=== PATIENT | female | born 1960 | race Caucasian/White ===

== ENCOUNTER 2017-06-22 10:55 | Emergency (ER) | payer OTHER ==
[~2017-06-22] VITALS: Ht 157.5 cm; Wt 79.4 kg
[~2017-06-22 10:55] MED LIST: BENA20TA PO; PANT40EC PO
[2017-06-22 11:06] VITALS: BP 190/99
--- NOTE | 2017-06-22 11:36 | NUR ---
56f bib with c/o syncopal episode today today while walking. Pt sts she felt "palpations" during the night and intermittent dizziness throught today. Pt reports of 8/10 "sharp" constant right arm and shoulder pain. Abrasion noted to chin. Pt is aox4, answer questions appriopriately. RR are even and unlabored. Skin warm/pink/dry. No acute distress at this time. er md fower by bedside examining pt. Vss. Pt is NSR on CM. All needs met at this time. Will continue to monitor.
[2017-06-22 11:40] LABS: APPEARANCE,URINE CLEAR (CLEAR); BILIRUBIN,URINE NEGATIVE (NEGATIVE); BLOOD, URINE NEGATIVE (NEGATIVE); COLOR,URINE YELLOW (YELLOW); LEUKOCYTE ESTERASE ,URINE TRACE (NEGATIVE); NITRITE, URINE NEGATIVE (NEGATIVE); UGLUCOSE NEGATIVE (NEGATIVE)
[2017-06-22 11:42] LABS: HEMATOCRIT 39.9 % (36-48); HEMOGLOBIN 13.5 g/dL (12.0-16.0); MEAN CORPUSCULAR HEMOGLOBIN 29 pg (27-31); MEAN CORPUSCULAR HGB CONC 34 g/dL (33-37); MEAN CORPUSCULAR VOLUME 86 fL (80-94); PLATELET COUNT (AUTO) 167 K/uL (140-450); RED BLOOD CELL COUNT(AUTO) 4.66 MIL/uL (4.20-5.40); RED CELL DISTRIBUTION WIDTH 12.1 % (11.6-13.7); WHITE BLOOD COUNT (AUTO) 7.6 K/uL (4.8-10.8)
--- NOTE | 2017-06-22 11:44 | NUR ---
xray by bedside
[2017-06-22 11:45] LABS: RBC,URINE 0-5 (RARE) /HPF (0-5); WBC,URINE 0-5 (RARE) /HPF (0-5)
[2017-06-22 11:48] LABS: ANION GAP 8.6 (8-16); CARBON DIOXIDE 29.7 mmol/L (21-32); CREATININE 0.7 mg/dL (0.6-1.3); LYMPHOCYTES % (MANUAL) 28 % (20-46); MONOCYTES % (MANUAL) 7 % (5-12); POTASSIUM 3.3 mmol/L (3.5-5.1)
[2017-06-22 11:52] LABS: PROTHROMBIN TIME 10.5 secs (10.8-13.4)
[2017-06-22 11:54] LABS: ALBUMIN 3.8 g/dL (3.4-5.0); TOTAL BILIRUBIN 0.4 mg/dL (0.0-1.0)
--- NOTE | 2017-06-22 12:33 | NUR ---
Dr. Roberts refused to admit the patient. Will wait for pending CT results per Dr. Lynne.
--- NOTE | 2017-06-22 13:33 | NUR ---
Pt resting with eyes closed in gurney laying supine. RR are even and unlabored. VSS. Will continue to monitor.
[2017-06-22] MEDS ORDERED: ONDANSETRON 4 MG/2 ML VIAL IVP ONE (13:50)
[2017-06-22] MEDS ORDERED: MORPHINE SULFATE 2 MG/ML SYR IVP ONE (13:50)
--- NOTE | 2017-06-22 14:35 | NUR ---
Patient to be transferred to [facility]. Is being transferred due to higher level of care. Receiving facility has accepting physician and available space. ER physician has signed transfer form. Patient or responsible green party has agreed to transfer and signed form. Patient belongings inventoried and will be sent with patient. Copy of nursing notes, lab reports, EKG, Physicians Orders and X-rays to be sent with patient. Report called to Melchor Maya RN at receiving facility. [facility] has been called for transfer. ETA is 30mins.
[2017-06-22 15:11] VITALS: BP 163/87
--- NOTE | 2017-06-22 15:11 | NUR ---
[facility] acl by bedside. pt stable for transfer. pt aox4. gcs=15. rr are even and unlabored. pt left er without incident.
[2017-06-22 15:19] LABS: D-DIMER < 100 ng/ml (0-400)
== END 2017-06-22 15:11 | disposition short-term general hospital (02) ==
LOC: MED 10:55
DX: R55 Syncope and collapse (principal); G45.9 Transient cerebral ischemic attack, unspecified; E11.9 Type 2 diabetes mellitus without complications; I10 Essential (primary) hypertension; Z79.899 Other long term (current) drug therapy
CPT/HCPCS: 36415; 70450; 71045; 72125; 73030; 73120; 80053; 81001; 82948; 83735; 84484; 85025; 85379; 85610; 85730; 93005; 96374; 96375; 99285; J2270; J2405

== ENCOUNTER 2018-09-18 18:44 | Emergency (ER) | payer OTHER ==
[~2018-09-18] VITALS: Ht 152.4 cm; Wt 79.9 kg
[2018-09-18 18:57] VITALS: BP 140/78
[2018-09-18] MEDS ORDERED: NACL 0.9% 1,000 ML IV SCH (19:09)
[2018-09-18] MEDS ORDERED: ONDANSETRON 4 MG/2 ML VIAL IVP ONE (19:10)
[2018-09-18] MEDS ORDERED: KETOROLAC 30 MG/ML VIAL IVP ONE (19:10)
--- NOTE | 2018-09-18 19:12 | NUR ---
PATIENT PRESENTS TO ED WITH C/O ABD PAIN X 3 +N/V/D . SKIN IS PINK/WARM/DRY; AAOX4 WITH EVEN AND STEADY GAIT; LUNGS CLEAR BL; HR EVEN AND REGULAR; PT DENIES ANY FEVER, CP, SOB, OR COUGH AT THIS TIME; PATIENT STATES PAIN OF 9/10 AT THIS TIME; VSS; PATIENT POSITIONED FOR COMFORT; HOB ELEVATED; BEDRAILS UP X2; BED DOWN. ER MD MADE AWARE OF PT STATUS.
[2018-09-18 19:29] LABS: BASOPHILS % (AUTO) 0.4 % (0.0-2.0); EOSINOPHILS # (AUTO) 0.1 K/uL (0-0.4); HEMATOCRIT 42.8 % (36-48); HEMOGLOBIN 14.2 g/dL (12.0-16.0); LYMPHOCYTES % (AUTO) 8.6 % (20.5-51.1); MEAN CORPUSCULAR HEMOGLOBIN 29 pg (27-31); MEAN CORPUSCULAR HGB CONC 33 g/dL (33-37); MEAN CORPUSCULAR VOLUME 87.3 fL (80-94); MONOCYTES # (AUTO) 0.7 K/uL (0.8-1.0); NEUTROPHILS # (AUTO) 9.4 K/uL (1.8-7.7); PLATELET COUNT (AUTO) 179 K/uL (140-450); RED CELL DISTRIBUTION WIDTH 13.5 % (11.6-13.7); WHITE BLOOD COUNT (AUTO) 11.2 K/uL (4.8-10.8)
[2018-09-18 19:38] LABS: ANION GAP 12.1 (8-16); CARBON DIOXIDE 27.4 mmol/L (21-32); CREATININE 0.8 mg/dL (0.6-1.3); POTASSIUM 3.5 mmol/L (3.5-5.1)
[2018-09-18 19:44] LABS: ALBUMIN 3.8 g/dL (3.4-5.0); TOTAL BILIRUBIN 0.7 mg/dL (0.0-1.0)
--- NOTE | 2018-09-18 19:58 | NUR ---
DR. BLEDSOE BEDSIDE EVALUATING PT
--- NOTE | 2018-09-18 20:10 | NUR ---
EKG PERFORMED AT BEDSIDE
--- NOTE | 2018-09-18 20:32 | NUR ---
IV removed, catheter intact and site benign. Applied folded 4x4 gauze and tape to stop bleeding.
[2018-09-18 20:33] VITALS: BP 132/62
--- NOTE | 2018-09-18 20:33 | NUR ---
Patient discharged with v/s stable. Written and verbal after care instructions given and explained. Patient verbalized understanding. Ambulatory with steady gait. All questions addressed prior to discharge. Advised to follow up with PMD.
== END 2018-09-18 20:33 | disposition home or self-care (01) ==
LOC: MED 18:44
DX: R10.13 Epigastric pain (principal); R11.2 Nausea with vomiting, unspecified; R07.89 Other chest pain; R19.7 Diarrhea, unspecified; E11.9 Type 2 diabetes mellitus without complications; I10 Essential (primary) hypertension; Z98.890 Other specified postprocedural states; Z79.899 Other long term (current) drug therapy
CPT/HCPCS: 36415; 80053; 83690; 85025; 93005; 96361; 96374; 96375; 99284; J1885; J2405; J7030

== ENCOUNTER 2019-06-20 09:45 | Emergency (ER) | payer OTHER ==
[~2019-06-20] VITALS: Ht 152.4 cm; Wt 79.8 kg
[2019-06-20 09:50] VITALS: BP 119/69
--- NOTE | 2019-06-20 09:55 | NUR ---
PT TO ER BED 6
--- NOTE | 2019-06-20 10:00 | NUR ---
58 y/o female c/o generalized body aches, headahce, fever/chills, and nausea since 0100 today. denies vomiting/diarrhea. states 10/30 aching. took 800 mg ibuprofen at 0100 with pain relief. denies cough. rr even and unlabored. denies chest pain. sitting upright in bed, positioned for comfort. daughter at bedside. vss. medhx: dm, htn allergies: nka
--- NOTE | 2019-06-20 10:19 | NUR ---
Dr Benton at bedside examining pt
[2019-06-20] MEDS ORDERED: KETOROLAC 30 MG/ML VIAL IVP ONE (10:25)
[2019-06-20] MEDS ORDERED: NACL 0.9% 1,000 ML IV ONE (10:25)
--- NOTE | 2019-06-20 10:43 | NUR ---
20 G IV PLACED TO LT AC, LABS DRAWN AT THIS TIME.
[2019-06-20 10:45] LABS: BASOPHILS % (AUTO) 0.4 % (0.0-2.0); EOSINOPHILS # (AUTO) 0.1 K/uL (0-0.4); EOSINOPHILS % (AUTO) 0.5 % (0.0-4.0); HEMATOCRIT 41.7 % (36-48); HEMOGLOBIN 14.2 g/dL (12.0-16.0); LYMPHOCYTES % (AUTO) 15.2 % (20.5-51.1); MEAN CORPUSCULAR HEMOGLOBIN 29 pg (27-31); MEAN CORPUSCULAR HGB CONC 34 g/dL (33-37); MEAN CORPUSCULAR VOLUME 85.7 fL (80-94); MONOCYTES # (AUTO) 0.7 K/uL (0.8-1.0); MONOCYTES % (AUTO) 5.4 % (1.7-9.3); NEUTROPHILS # (AUTO) 10.1 K/uL (1.8-7.7); NEUTROPHILS % (AUTO) 78.5 % (42.2-75.2); PLATELET COUNT (AUTO) 176 K/uL (140-450); RED BLOOD CELL COUNT(AUTO) 4.87 MIL/uL (4.20-5.40); RED CELL DISTRIBUTION WIDTH 13.3 % (11.6-13.7); WHITE BLOOD COUNT (AUTO) 12.9 K/uL (4.8-10.8)
[2019-06-20 11:05] LABS: ANION GAP 7.9 (8-16); CREATININE 0.8 mg/dL (0.6-1.3); TOTAL BILIRUBIN 0.7 mg/dL (0.0-1.0)
[2019-06-20 11:08] LABS: POTASSIUM 2.9 mmol/L (3.5-5.1)
[2019-06-20] MEDS ORDERED: POTASSIUM CHLORIDE 10 MEQ TABER PO ONE (11:10)
--- NOTE | 2019-06-20 11:18 | NUR ---
PT REPORTS DECREASE IN PAIN AFTER TORADOL. 05/02 ACHING TO GENERALIZED BODY
[2019-06-20 11:42] VITALS: BP 123/76
--- NOTE | 2019-06-20 11:43 | NUR ---
Patient discharged with v/s stable. Written and verbal after care instructions given and explained. Patient alert, oriented and verbalized understanding of instructions. Ambulatory with steady gait. All questions addressed prior to discharge. ID band removed. Patient advised to follow up with PMD. Rx of MOTRIN AND TRAMADOL given. Patient educated on indication of medication including possible reaction and side effects. Opportunity to ask questions provided and answered.
== END 2019-06-20 11:43 | disposition home or self-care (01) ==
LOC: MED 09:45
DX: B34.9 Viral infection, unspecified (principal); E11.9 Type 2 diabetes mellitus without complications; I10 Essential (primary) hypertension; Z79.899 Other long term (current) drug therapy; Z98.890 Other specified postprocedural states
CPT/HCPCS: 36415; 80053; 85025; 96374; 99283; J1885; J7030